=== PATIENT | female | born 1955 ===

== ENCOUNTER 2018-05-20 05:46 | Day surgery (SDC) | payer MEDICARE, MEDICAID ==
[2018-05-15 12:49] VITALS: BMI 39.0
[2018-05-20] MEDS ORDERED: Midazolam 2 MG/2 ML VIAL ONE (07:35)
[2018-05-20] MEDS ORDERED: Propofol 10 mg/ml Inj (20 ML) ONE (07:35)
[2018-05-20] MEDS ORDERED: Lactated Ringer's 1,000 ML IV ONE (08:10)
[2018-05-20] MEDS ORDERED: HYDROmorphone 0.5 mg/0.5 ml ISec IVP PRN (08:11)
[2018-05-20 14:10] VITALS: BP 116/56; PULSE 59; RESP 18; TEMP 97.5; O2SAT 100
--- NOTE | 2018-05-20 19:46 | OP ---
PROCEDURE DATE: 05/20/2018 PREOPERATIVE DIAGNOSES: A 62-year-old 2, para 2 with endometrial thickening, postmenopausal bleeding with history of breast cancer. POSTOPERATIVE DIAGNOSES: A 62-year-old 2, para 2 with endometrial thickening, postmenopausal bleeding with history of breast cancer, and endometrial polyp. PROCEDURE: MyoSure dilation and curettage, hysteroscopy. SURGEON: Pantera Carty MD MARKETING COMMUNICATIONS ASSISTANT: None. TYPE OF ANESTHESIA: General. ANESTHESIA ADMINISTERED BY: . ESTIMATED BLOOD LOSS: 20 mL. DEFICIT: 315 mL. COMPLICATIONS: None. DESCRIPTION OF PROCEDURE: After informed consent was obtained, the patient was brought to the operating room, placed on the table where general anesthesia was given. Once the anesthesia was given, the patient was prepped and draped in normal sterile fashion. Examination found the uterus to be about 8 weeks' size. No pelvic or adnexal mass. The anterior lip of cervix was grasped with a tenaculum. Gentle dilatation of the cervix was done. Hysteroscope was introduced and found the polyp to be on the anterior wall of the uterus. Pictures were taken and then the decision was to use the MyoSure. MyoSure was used to take out the polyp. It was sent to Pathology. After that, sharp curettage of the endometrium was done, it was sent to Pathology. Then the ECC was sent to Pathology also. After the polyp was found. The patient tolerated the procedure well. The tenaculum was taken out. Lap, sponge, and instrument counts were correct x2. Pnatera Carty MD
== END 2018-05-20 12:17 | disposition home or self-care (01) ==
LOC: C.SDS 05:46
PROVIDERS: ATTEND Obstetrics & Gynecology
DX: N84.0 Polyp of corpus uteri (principal); N95.0 Postmenopausal bleeding; Z85.3 Personal history of malignant neoplasm of breast; I10 Essential (primary) hypertension; E78.5 Hyperlipidemia, unspecified; E55.9 Vitamin D deficiency, unspecified
CPT/HCPCS: 58558; 88305; J2250; J2704; J3010; J7120